=== PATIENT | female | born 1975 | race Caucasian/White ===

== ENCOUNTER 2019-07-24 09:49 | Outpatient (CLI) | payer OTHER | END 2019-07-24 10:01 | disposition home or self-care (01) | LOC: MAMO-SONO 09:49 | DX: Z12.31 Encounter for screening mammogram for malignant neoplasm of breast (principal); Z87.898 Personal history of other specified conditions; N64.4 Mastodynia; N60.11 Diffuse cystic mastopathy of right breast; E04.1 Nontoxic single thyroid nodule; N63.10 Unspecified lump in the right breast, unspecified quadrant; N63.20 Unspecified lump in the left breast, unspecified quadrant ==

== ENCOUNTER 2019-08-15 07:59 | Outpatient (CLI) | payer OTHER | END 2019-08-15 08:06 | disposition home or self-care (01) | LOC: SONOGRAMA 07:59 | DX: E04.2 Nontoxic multinodular goiter (principal) ==